=== PATIENT | female | born 1985 | race Caucasian/White ===

== ENCOUNTER 2017-03-19 10:04 | Emergency (ER) | payer OTHER ==
[~2017-03-19] VITALS: Ht 172.7 cm; Wt 78.9 kg
[2017-03-19 10:08] VITALS: BP 143/67
[2017-03-19 10:56] LABS: BILIRUBIN,URINE NEG (NEG); CLARITY,URINE CLOUDY; COLOR,URINE AMBER; GLUCOSE,URINE NEG (NEG); NITRITE,URINE POS (NEG); UROBILINOGEN,URINE 0.2 mg/dL (0.2 mg/dL)
[2017-03-19 10:57] LABS: BACTERIA,URINE FEW /HPF (0-FEW); SQUAMOUS EPITHELIAL CELL,UR OCC /LPF; WBC,URINE >40 /HPF (0-4)
[2017-03-19 10:59] LABS: U PREG PATIENT NEGATIVE (NEG)
--- NOTE | 2017-03-19 11:26 | ED.ADGEN ---
Past History Past Medical History: Other Past Surgical History: No Surgical History Alcohol Use: None Drug Use: None Adult General Chief Complaint Chief Complaint Suprapubic pain HPI HPI The patient is a 31-year-old white female with history of chronic cystitis who presents with suprapubic pain, burning left flank pain and nausea. Patient reports subjective fever last evening. Administered and moderate. Described as sharp and different than routine pain with cystitis. No vomiting, sweats, chills and hematuria. Patient recently relocated to this area from [place] of state. Left flank pain. Review of Systems Review of Systems ROS as per HPI. Allergies Allergies Allergies Coded Allergies Type Severity Reaction Last Updated Verified No Known Drug Allergies 03/19/17 No Physical Exam Physical Exam Constitutional: Well developed, well nourished, no acute distress, non-toxic appearance. [] HENT: Normocephalic, atraumatic, bilateral external ears normal, oropharynx moist, no oral exudates, nose normal. [] Eyes: PERRLA, EOMI, conjunctiva normal, no discharge. [] Neck: Normal range of motion, no tenderness, supple, no stridor. [] Cardiovascular:Heart rate regular rhythm, no murmur [] Lungs & Thorax: Bilateral breath sounds clear to auscultation [] Abdomen: Bowel sounds normal, soft, [] Skin: Warm, dry, no erythema, no rash. [] no tenderness, no masses, no pulsatile masses. Back: No tenderness, L cva tenderness. [] Extremities: No tenderness, no cyanosis, no clubbing, ROM intact, no edema. [] Neurologic: Alert and oriented X 3, normal motor function, normal sensory function, no focal deficits noted. [] Psychologic: Affect normal, judgement normal, mood normal. [] Current Patient Data Vital Signs Vital Signs Date Time Temp Pulse Resp B/P (MAP) Pulse Ox O2 Delivery O2 Flow Rate FiO2 03/19/17 10:08 97.9 99 18 100 Room Air Lab Results Laboratory Tests Test 03/19/17 10:15 Urine Collection Type Unknown Urine Color Meghan Urine Clarity Cloudy Urine pH 5.5 Urine Specific [place] 1.015 Urine Protein 30 mg/dl (NEG-TRACE) Urine Glucose (UA) Neg mg/dL (NEG) Urine Ketones (Stick) Neg mg/dL (NEG) Urine Blood Mod (NEG) Urine Nitrite Pos (NEG) Urine Bilirubin Neg (NEG) Urine Urobilinogen Dipstick 0.2 mg/dL (0.2 mg/dL) Urine Leukocyte Esterase Large (NEG) Urine RBC 6-10 /HPF (0-2) Urine WBC >40 /HPF (0-4) Urine Squamous Epithelial Cells Occ /LPF Urine Bacteria Few /HPF (0-FEW) Urine Test Negative (NEG) EKG EKG [] Radiology/Procedures Radiology/Procedures [] Course & Med Decision Making Course & Med Decision Making Pertinent Labs and Imaging studies reviewed. (See chart for details) [Repeat pain left flank pain consistent with early pyelonephritis. First dose of antibiotics given in the emergency department. Recommend continued abx increased fluids, supportive care with CP/urology follow-up. Final Impression Final Impression [1. Left flank pain 2 .UTI] Problems: Dragon Disclaimer Dragon Disclaimer This electronic medical record was generated, in whole or in part, using a voice recognition dictation system. RICHARD PALMER DO Mar 19, 2017 11:26
[2017-03-19] MEDS ORDERED: CIPROFLOXACIN HCL 500 MG TABLET ONE (11:32)
[2017-03-19] MEDS ORDERED: CIPROFLOXACIN HCL 500 MG TABLET PO ONE (12:00)
== END 2017-03-19 11:38 | disposition home or self-care (01) ==
LOC: ER 10:04
DX: N39.0 Urinary tract infection, site not specified (principal)
CPT/HCPCS: 81001; 81025; 87086; 87186; 99284

== ENCOUNTER 2017-08-03 07:21 | Emergency (ER) | payer OTHER ==
[2017-08-03 08:30] LABS: INFLUENZA A PATIENT NEGATIVE (NEGATIVE); INFLUENZA B PATIENT NEGATIVE (NEGATIVE)
[2017-08-03] MEDS ORDERED: AZIT250T PO (09:03)
--- NOTE | 2017-08-03 09:03 | PHYS DOC ---
Past History Past Medical History: No Pertinent History Past Surgical History: No Surgical History Alcohol Use: Occasionally Drug Use: None Adult General Chief Complaint Chief Complaint: SORE THROAT HPI HPI 32-year-old male patient complaining of sore throat since yesterday with generalized weakness and not feeling good. Patient denies fever, cough, nasal congestion, nausea and vomiting, diarrhea and constipation. Patient states she had sick contacts with flu and had history of previous strep pharyngitis and concerns for infection because she plans to go out of town. Review of Systems Review of Systems Constitutional: Denies fever or chills [] Eyes: Denies change in visual acuity, redness, or eye pain [] HENT: Denies nasal congestion , reports sore throat [] Respiratory: Denies cough or shortness of breath [] Cardiovascular: No additional information not addressed in HPI [] GI: Denies abdominal pain, nausea, vomiting, bloody stools or diarrhea [] : Denies dysuria or hematuria [] Musculoskeletal: Denies back pain or joint pain [] Integument: Denies rash or skin lesions [] Neurologic: Denies headache, focal weakness or sensory changes [] Endocrine: Denies polyuria or polydipsia [] All other systems were reviewed and found to be within normal limits, except as documented in this note. Allergies Allergies Allergies Coded Allergies Type Severity Reaction Last Updated Verified No Known Drug Allergies 03/19/17 No Physical Exam Physical Exam Constitutional: Well developed, well nourished, mild distress, non-toxic appearance. [] HENT: Normocephalic, atraumatic, bilateral external ears normal, oropharynx moist, pharyngeal erythema and edema, no oral exudates, nose normal. [] Eyes: PERRLA, EOMI, conjunctiva normal, no discharge. [] Neck: Normal range of motion, no tenderness, supple, no stridor. [] Cardiovascular:Heart rate regular rhythm, no murmur [] Lungs & Thorax: Bilateral breath sounds clear to auscultation [] Abdomen: Bowel sounds normal, soft, no tenderness, no masses, no pulsatile masses. [] Skin: Warm, dry, no erythema, no rash. [] Back: No tenderness, no CVA tenderness. [] Extremities: No tenderness, no cyanosis, no clubbing, ROM intact, no edema. [] Neurologic: Alert and oriented X 3, normal motor function, normal sensory function, no focal deficits noted. [] Psychologic: Affect normal, judgement normal, mood normal. [] Current Patient Data Vital Signs Vital Signs Date Time Temp Pulse Resp B/P (MAP) Pulse Ox O2 Delivery O2 Flow Rate FiO2 08/03/17 07:21 97.8 82 18 98 Room Air Lab Results Laboratory Tests Test 08/03/17 07:50 Influenza Type A (Rapid) Negative (NEGATIVE) Influenza Type B (Rapid) Negative (NEGATIVE) Group A Streptococcus Rapid Negative (NEGATIVE) EKG EKG [] Radiology/Procedures Radiology/Procedures [] Course & Med Decision Making Course & Med Decision Making Pertinent Labs reviewed. (See chart for details) Evaluation of patient in ER showed 32-year-old female patient with sore throat since yesterday. Patient had a negative flu and strep test. Plan to give prescription for Zithromax to start if the sore throat does not get better in 2- 3 days. [] Dragon Disclaimer Dragon Disclaimer This electronic medical record was generated, in whole or in part, using a voice recognition dictation system. Departure Departure: Impression: Primary Impression: Pharyngitis, acute Disposition: HOME, SELF-CARE (at 0901) Condition: STABLE Referrals: CATARINA DODSON DO, [facility] (PCP) Patient Instructions: Sore Throat Additional Instructions: May take [id number] ibuprofen and Tylenol as needed for pain Drink plenty of liquids Follow-up with your primary care physician if not getting better Scripts Azithromycin (ZITHROMAX) 250 Mg Tablet 1 PKG PO UD, #6 TAB Prov: JOANNE RANDHAWA MD 08/03/17 JOANNE RANDHAWA MD Aug 03, 2017 09:03
[2017-08-03 09:34] VITALS: BP 114/71
== END 2017-08-03 09:35 | disposition home or self-care (01) ==
LOC: ER 07:21
DX: J02.9 Acute pharyngitis, unspecified (principal); R53.1 Weakness
CPT/HCPCS: 87070; 87804; 87880; 99284

== ENCOUNTER 2017-08-29 19:16 | Emergency (ER) | payer OTHER ==
[~2017-08-29] VITALS: Ht 172.7 cm; Wt 70.3 kg
[~2017-08-29 19:16] MED LIST: AZIT250T PO
[2017-08-29 19:20] VITALS: BP 124/80
--- NOTE | 2017-08-29 20:14 | ED.ADGEN ---
Past History Past Medical History: Other Past Surgical History: Alcohol Use: None Drug Use: None Adult General Chief Complaint Chief Complaint " My kids are sick.. now I am sick.. since Sat..." HPI HPI Patient is a 32 year old female who presents with above hx and complaints of myalgia, arthralgia, malaise, rhinorrhea, pharyngitis, and fatigue. No recent travel. She is exposed to her children that are sick with viral infection. Patient denies any history of prior immunosuppression. Patient is normally healthy. Pt. follows with Dr. Michelle as primary. Review of Systems Review of Systems Constitutional: Hx. of fever and chills [] Eyes: Denies change in visual acuity, redness, or eye pain [] HENT: Hx. of nasal congestion and sore throat [] Respiratory: Hx of non-productive cough . Cardiovascular: No additional information not addressed in HPI [] GI: Denies abdominal pain, nausea, vomiting, bloody stools or diarrhea [] : Denies dysuria or hematuria [] Musculoskeletal: Complaints of generalize myalgia, and arthralgia. Pt. has generalized back pain and joint pain [] Integument: Denies rash or skin lesions [] Neurologic: Hx of headache,. Denies focal weakness or sensory changes [] Endocrine: Denies polyuria or polydipsia [] All other systems were reviewed and found to be within normal limits, except as documented in this note. Family History Family History Children have a viral infection Current Medications Current Medications Current Medications Medications (Trade) Dose Ordered Sig/Bianka Start Time Stop Time Status Last Admin Dose Admin Ibuprofen (Motrin) 600 mg STK-MED ONCE 08/29/17 20:50 08/29/17 20:51 DC Oseltamivir Phosphate (Tamiflu) 75 mg 1X ONCE 08/29/17 22:00 08/29/17 22:01 DC 08/29/17 22:01 75 MG See nursing for home meds Allergies Allergies Allergies Coded Allergies Type Severity Reaction Last Updated Verified No Known Drug Allergies 03/19/17 No Physical Exam Physical Exam Constitutional: Well developed, well nourished, in acute distress, ill in appearance. [] HENT: Normocephalic, atraumatic, bilateral external ears normal, oropharynx moist, checked pharynx, no oral exudates, nose rhinorrhea Eyes: PERRLA, EOMI, conjunctiva normal, no discharge. [] Neck: Normal range of motion, no tenderness, supple, no stridor. [] Cardiovascular: Tachycardia Heart rate, regular rhythm, no murmur [] Lungs & Thorax: Bilateral breath sounds equal scattered wheezes on auscultation [] Abdomen: Bowel sounds normal, soft, no tenderness, no masses, no pulsatile masses. Old surgical scar Skin: Warm, diaphoretic, no erythema, no rash. [] Back: No tenderness, no CVA tenderness. [] Extremities: Generalized muscle and joint tenderness, no cyanosis, no clubbing, ROM intact, no edema. [] Neurologic: Alert and oriented X 3, normal motor function, normal sensory function, no focal deficits noted. [] Psychologic: Affect anxious, judgement normal, mood depressed Current Patient Data Vital Signs Vital Signs Date Time Temp Pulse Resp B/P (MAP) Pulse Ox O2 Delivery O2 Flow Rate FiO2 08/29/17 19:20 98.1 78 20 98 Room Air Lab Results Laboratory Tests Test 08/29/17 20:33 Influenza Type A (Rapid) Positive (NEGATIVE) Influenza Type B (Rapid) Negative (NEGATIVE) Group A Streptococcus Rapid Negative (NEGATIVE) EKG EKG [] Radiology/Procedures Radiology/Procedures [] Course & Med Decision Making Course & Med Decision Making Pertinent Labs and Imaging studies reviewed. (See chart for details). Push fluids. Tylenol and Ibuprofen for discomfort and fever. Tamiflu 75 twice a day. Follow up with primary. Benadryl may be helpful 25-50 mg 4 times a day. Return if any concerns. [] Final Impression Final Impression 1. Viral Syndrome 2. Upper respiratory infection 3. Pharyngitis[] 4. Influenza A Problems: Dragon Disclaimer Dragon Disclaimer This electronic medical record was generated, in whole or in part, using a voice recognition dictation system. INGRID PEREIRA MD Aug 29, 2017 20:14
[2017-08-29] MEDS ORDERED: IBUPROFEN 600 MG TABLET. PO ONE ×2 (20:45→20:50)
[2017-08-29 21:32] LABS: INFLUENZA A PATIENT POSITIVE (NEGATIVE); INFLUENZA B PATIENT NEGATIVE (NEGATIVE)
[2017-08-29] MEDS ORDERED: OSEL75CA PO (21:45)
[2017-08-29] MEDS ORDERED: OSELTAMIVIR 75 MG CAPSULE PO ONE (22:00)
== END 2017-08-29 22:05 | disposition home or self-care (01) ==
LOC: ER 19:16
DX: J09.X2 Influenza due to identified novel influenza A virus with other respiratory manifestations (principal); J02.9 Acute pharyngitis, unspecified
CPT/HCPCS: 87070; 87804; 87880; 99284